=== PATIENT | male | born 1965 | race Caucasian/White ===

== ENCOUNTER 2024-04-26 12:40 | Emergency (ER) | payer OTHER, SELFPAY ==
[2024-04-26 12:47] VITALS: BP 145/86; PULSE 76; TEMP 37.1; O2SAT 95; BMI 32.6
--- NOTE | 2024-04-26 13:03 | XR_ITS ---
[facility] [id number] Patient Name: NINI CHOWDHURY MRN: [id number] date: 1965 Sex: M Assigned Patient Location: ER Current Patient Location: ER Accession/Order Number: [id number] Exam Date: 04/26/2024 13:15 Report Date: 04/26/2024 14:14 At the request of: MACIEJ HSIEH Procedure: XR wrist LT min 3V PROCEDURE: XR wrist LT min 3V HISTORY: pain, fall COMPARISON: None. FINDINGS: BONES:No fracture, acute abnormality, or significant arthropathy. SOFT TISSUES:Small metallic foreign body at medial base of the wrist near the ulnar styloid process. EFFUSION:None visible. OTHER: Negative. XR/XR wrist LT min 3V IMPRESSION: 1. No acute bone abnormality. 2. Radiopaque foreign body described above; chronic versus acute? Electronically authenticated by: MAYA ZAMBRANO Date: 04/26/2024 14:14
--- NOTE | 2024-04-26 13:03 | ED.UPPEXIN1 ---
HPI HPI - Extremity Injury (Upper) General Chief Complaint: Extremity Injury, Upper Stated Complaint: UPPER EXTREMITY INJURY [facility] Time Seen by Provider: 04/26/24 13:01 Source: patient Mode of arrival: walk-in Limitations: no limitations History of Present Illness HPI narrative: 59 year old male presents to the ED for left wrist pain s/p trip and fall this morning. He landed with his left arm outstretched. Denies weakness, N/T. The pain increases with certain movements. Denies pain to the hand, elbow, shoulder. Denies pain to his neck, back. Related Data Home Medications ?Medication ?Instructions ?Recorded ?Confirmed tramadol 50 mg tablet 50 mg PO Q4H 04/26/24 04/26/24 Allergies Allergy/AdvReac Type Severity Reaction Status Date / Time No Known Drug Allergies Allergy Verified 04/26/24 12:46 Opioid HPI Opioid Management Most Recent Pain and Opioid Data: Last Pain Scale 7 04/26/24 12:52 04/26/24 Review of Systems ROS Constitutional Denies: fever or chills Ears, nose, mouth, and throat Denies: throat pain Cardiovascular Denies: chest pain Respiratory Denies: shortness of breath Musculoskeletal Reports: extremity pain; Denies: back pain or neck pain Neurological Denies: numbness in extremities or weakness in extremities PFSH PFSH Social History Little interest or pleasure in doing things: not at all Feeling down, depressed, or hopeless: not at all Exam Constitutional Vital Signs, click to edit/add: Last Vital Signs Temp 98.7 F 04/26/24 12:47 Pulse 76 04/26/24 12:47 Resp 79 H 04/26/24 12:47 BP 145/86 H 04/26/24 12:47 Pulse Ox 95 04/26/24 12:47 O2 Del Method Room Air 04/26/24 12:47 Common normals: no apparent distress and oriented x3 General appearance: cooperative Eye Common normals: conjunctivae normal and no scleral icterus Neck & C-Spine Common normals: supple Chest Chest: symmetrical chest wall rise Respiratory Common normals: normal respiratory effort Effort & inspection: able to speak in complete sentences Cardio Peripheral pulses: radial pulses present and ulnar pulses present Extremity Left upper extremity: wrist (Tenderness. No obvious deformity. Distal sensation intact.) and hand and digits Left hand and digits: ROM (Full) and neurovascular exam (Intact) Neuro Common normals: oriented x3 Sensorium/orientation: awake and alert Psych Attitude: calm Speech: normal speech Course Vital Signs Vital signs: Vital Signs Temperature 98.7 F 04/26/24 12:47 Pulse Rate 76 04/26/24 12:47 Respiratory Rate 79 H 04/26/24 12:47 Blood Pressure 145/86 H 04/26/24 12:47 Pulse Oximetry 95 04/26/24 12:47 Oxygen Delivery Method Room Air 04/26/24 12:47 Temperature 98.7 F 04/26/24 12:47 Pulse Rate 76 04/26/24 12:47 Respiratory Rate 79 H 04/26/24 12:47 Blood Pressure 145/86 H 04/26/24 12:47 Pulse Oximetry 95 04/26/24 12:47 Oxygen Delivery Method Room Air 04/26/24 12:47 MDM - Extremity Injury (Upper) MDM Narrative Medical decision making narrative: X-ray showed no acute bone abnormality; radiopaque foreign body. There were no wounds noted on examination; FB likely chronic. Findings were discussed with the patient. An bennie wrap was applied. The application was checked and was appropriate; the LUE remained NVI. He declined medication for his discomfort here. Follow up with occupational health for a recheck, further evaluation and treatment. Differential Diagnosis Differential diagnosis: Likely sprain and strain of wrist and fracture of wrist Medical Records Attestation: I reviewed the patient's medical records. Imaging Data XR wrist: Attestation: I have reviewed the pertinent imaging results. Radiologist's impression: ITS Impressions Wrist X-Ray 04/26/24 13:03 IMPRESSION: 1. No acute bone abnormality. 2. Radiopaque foreign body described above; chronic versus acute? Electronically authenticated by: MAYA ZAMBRANO Date: 04/26/2024 14:14 Discharge Plan Discharge Chief Complaint: Extremity Injury, Upper Clinical Impression: Left wrist sprain Patient Disposition: Home, Self-Care Condition: Good Mode of Transportation: Private Vehicle Prescriptions / Home Meds: No Action tramadol 50 mg tablet 50 mg PO Q4H Print Language: [place] Instructions: How to Use an Elastic Bandage (ED), Wrist Sprain (ED) Additional Instructions: Follow up with occupational health. Referrals: NEERAJ MCHUGH [Primary Care Provider] - 1 week Discharge Date/Time: 04/26/24 15:06
== END 2024-04-26 15:06 | disposition home or self-care (01) ==
PROVIDERS: Emergency Provider Emergency Medicine
DX: S63.502A Unspecified sprain of left wrist, initial encounter (principal); W01.10XA Fall on same level from slipping, tripping and stumbling with subsequent striking against unspecified object, initial encounter
CPT/HCPCS: 73110; 99283